=== PATIENT | female | born 1955 | race Caucasian/White ===

== ENCOUNTER 2022-01-17 11:58 | Inpatient (IN) | payer MEDICARE, OTHER ==
[~2022-01-17] VITALS: Ht 167.6 cm; Wt 101.6 kg
[2022-01-17 13:01] LABS: BASOPHILS % (AUTO) 0.2 % (0.0-5.0); EOSINOPHILS % (AUTO) 0.5 % (0.0-8.0); HEMATOCRIT 41.5 % (36-48); LYMPHOCYTES % (AUTO) 9.9 % (21.0-51.0); MEAN CORPUSCULAR HEMOGLOBIN 32.8 pg (27.0-33.0); MEAN CORPUSCULAR HGB CONC 33.5 g/dL (32.0-36.0); MEAN CORPUSCULAR VOLUME 97.9 fL (79-99); MONOCYTES % (AUTO) 9.3 % (3.0-13.0); NEUTROPHILS % (AUTO) 79.8 % (40.0-77.0); PLATELET COUNT (AUTO) 71 K/uL (130-400); RED BLOOD CELL COUNT(AUTO) 4.24 MIL/uL (4.00-5.50); RED CELL DISTRIBUTION WIDTH 15.9 % (11.0-15.5); WHITE BLOOD COUNT (AUTO) 6.5 K/uL (4.8-10.8)
[2022-01-17 13:18] LABS: CREATININE 1.5 mg/dL (0.5-1.5)
[2022-01-17 13:22] LABS: ALBUMIN 2.3 g/dL (3.5-5.0); BILIRUBIN,TOTAL 3.1 mg/dL (0.2-1.0); TOTAL PROTEIN, SERUM 8.8 g/dL (6.0-8.3)
[2022-01-17 14:31] LABS: APPEARANCE,URINE Cloudy (CLEAR); BILIRUBIN,URINE Moderate (NEGATIVE); COLOR,URINE Dark Yellow (YELLOW); GLUCOSE, URINE (UA) Negative (NEGATIVE); KETONES,URINE Trace mg/dL (NEGATIVE); LEUKOCYTE ESTERASE ,URINE Moderate (NEGATIVE); NITRATE,URINE Positive (NEGATIVE); OCCULT BLOOD,URINE Moderate (NEGATIVE); PH,URINE 5.5 (5.0-8.0); PROTEIN,URINE POS 1+ mg/dL (NEGATIVE)
[2022-01-17 15:00] LABS: BACTERIA,URINE Moderate /HPF (None Seen); MUCUS,URINE Few LPF (None Seen); SQUAMOUS EPITHELIAL CELL,UR Few /HPF (0-2)
[2022-01-17] MEDS ORDERED: ONDANSETRON 4MG INJ IVP ONE (15:00)
[2022-01-17] MEDS ORDERED: 0.9% NACL 500ML IV.SOLN 500 ML IV ONE (15:00)
[2022-01-17] MEDS ORDERED: CEFTRIAXONE 1G VIAL IV ONE (15:00)
[2022-01-17] MEDS ORDERED: IOHEXOL 350 MG/ML 100ML INFUS..BTL IV ONE (15:03)
[2022-01-17] MEDS ORDERED: 0.9%NACL 50ML 50 ML IV ONE (15:49)
[2022-01-17] MEDS ORDERED: ONDANSETRON 4MG INJ IV PRN (17:00)
[2022-01-17] MEDS ORDERED: ACETAMINOPHEN 325 MG TAB PO PRN ×2 (17:00)
[2022-01-17] MEDS ORDERED: MORPHINE 2 MG SYG IV PRN (17:00)
[2022-01-17 17:36] LABS: ALBUMIN 2.4 g/dL (3.5-5.0); TOTAL PROTEIN, SERUM 8.9 g/dL (6.0-8.3)
[2022-01-17 17:44] LABS: B-TYPE NATRIURETIC PEPTIDE 32 pg/mL (0-100)
[2022-01-17] MEDS: FUROSEMIDE 40MG VIAL IV SCH (18:00)
[2022-01-17] MEDS ORDERED: FUROSEMIDE 40MG VIAL ONE (18:01)
[2022-01-17 18:26] LABS: ERYTHROCYTE SEDIMENTATION RATE 30 MM/HR (0-30)
[2022-01-17] MEDS ORDERED: LACTULOSE 20 GM/30 ML UDCUP PO PRN (18:30)
[2022-01-17] MEDS: LACTULOSE 20 GM/30 ML UDCUP PO SCH (21:05)
[2022-01-17] MEDS: ZOSYN 3.375GM+NS 50ML 50 ML IV SCH (21:05)
[2022-01-17] MEDS: SPIRONOLACTONE 25 MG TAB PO SCH (21:05)
[2022-01-17 21:41] VITALS: BP 129/79
[2022-01-18 03:37] LABS: BASOPHILS % (AUTO) 0.4 % (0.0-5.0); EOSINOPHILS % (AUTO) 1.1 % (0.0-8.0); HEMATOCRIT 41.5 % (36-48); LYMPHOCYTES % (AUTO) 9.4 % (21.0-51.0); MEAN CORPUSCULAR VOLUME 97.2 fL (79-99); MONOCYTES % (AUTO) 9.6 % (3.0-13.0); NEUTROPHILS % (AUTO) 79.1 % (40.0-77.0); PLATELET COUNT (AUTO) 92 K/uL (130-400); RED BLOOD CELL COUNT(AUTO) 4.27 MIL/uL (4.00-5.50); WHITE BLOOD COUNT (AUTO) 8.2 K/uL (4.8-10.8)
[2022-01-18 03:45] LABS: ALBUMIN 2.2 g/dL (3.5-5.0); BILIRUBIN,TOTAL 2.6 mg/dL (0.2-1.0); CREATININE 1.5 mg/dL (0.5-1.5); POTASSIUM 4.1 mmol/L (3.5-5.1); TOTAL PROTEIN, SERUM 8.2 g/dL (6.0-8.3)
[2022-01-18] MEDS: ZOSYN 3.375GM+NS 50ML 50 ML IV SCH ×3 (04:24→20:29)
[2022-01-18 05:17] VITALS: BP 90/56
[2022-01-18] MEDS: FUROSEMIDE 40MG VIAL IV SCH ×2 (06:13→17:08)
[2022-01-18 08:00] VITALS: BP 96/59
[2022-01-18] MEDS: SPIRONOLACTONE 25 MG TAB PO SCH ×2 (08:32→20:29)
[2022-01-18] MEDS: LACTULOSE 20 GM/30 ML UDCUP PO SCH ×2 (08:32→20:29)
[2022-01-18] MEDS: PANTOPRAZOLE 40 MG/VIAL IVP SCH ×2 (08:34→20:29)
[2022-01-18] MEDS ORDERED: FAMOTIDINE 20MG TAB PO SCH (09:00)
[2022-01-18 11:00] VITALS: BP 100/64
[2022-01-18 16:00] VITALS: BP 95/61
[2022-01-18 19:52] VITALS: BP 130/79
[2022-01-18 23:56] VITALS: BP 95/68
[2022-01-19] VITALS (15 sets, daily range): BP systolic 94–142; BP diastolic 40–70
[2022-01-19 05:08] LABS: BASOPHILS % (AUTO) 0.2 % (0.0-5.0); EOSINOPHILS % (AUTO) 0.3 % (0.0-8.0); HEMATOCRIT 40.4 % (36-48); LYMPHOCYTES % (AUTO) 6.8 % (21.0-51.0); MEAN CORPUSCULAR HEMOGLOBIN 32.9 pg (27.0-33.0); MEAN CORPUSCULAR HGB CONC 33.9 g/dL (32.0-36.0); MEAN CORPUSCULAR VOLUME 97.1 fL (79-99); MONOCYTES % (AUTO) 6.9 % (3.0-13.0); NEUTROPHILS % (AUTO) 85.5 % (40.0-77.0); PLATELET COUNT (AUTO) 83 K/uL (130-400); RED BLOOD CELL COUNT(AUTO) 4.16 MIL/uL (4.00-5.50); WHITE BLOOD COUNT (AUTO) 6.1 K/uL (4.8-10.8)
[2022-01-19 05:12] LABS: CREATININE 1.8 mg/dL (0.5-1.5); POTASSIUM 3.7 mmol/L (3.5-5.1)
[2022-01-19 05:13] LABS: INR 1.47 (0.85-1.15); PROTHROMBIN TIME 15.5 SEC (9.6-11.6)
[2022-01-19 05:14] LABS: PARTIAL THROMBOPLASTIN TIME 33.9 SEC (26.3-35.5)
[2022-01-19] MEDS: ZOSYN 3.375GM+NS 50ML 50 ML IV SCH ×3 (05:26→21:47)
[2022-01-19] MEDS: FUROSEMIDE 40MG VIAL IV SCH ×2 (05:28→17:58)
[2022-01-19] MEDS: LACTULOSE 20 GM/30 ML UDCUP PO SCH ×3 (09:00→21:57)
[2022-01-19] MEDS: PANTOPRAZOLE 40 MG/VIAL IVP SCH ×2 (09:00→21:47)
[2022-01-19] MEDS: SPIRONOLACTONE 25 MG TAB PO SCH ×2 (09:00→21:47)
[2022-01-19] MEDS ORDERED: ALBUMIN (HUMAN) 25% 200 ML IV SCH (13:00)
[2022-01-19 15:08] LABS: APPEARANCE BODY FLUID CLEAR (CLEAR); SPECIMENTYPE,BODY FLUID ASCITES
[2022-01-19 15:09] LABS: BODY FLUID RBC 32 /cu. mm.; BODY FLUID WBC 16 /cu. mm.; COLOR,BODY FLUID YELLOW (LT YELLOW); TOTAL VOLUME,BODY FLUID 13500 mL
[2022-01-19 16:57] LABS: BF EOSINOPHIL 1 %; BF LYMPHOCYTE 25 %; BF MESOTHELIAL 14 %; BF MONOCYTE 6 %
[2022-01-19 23:10] LABS: ALBUMIN,BODY FLUID 0.5 g/dL
[2022-01-20 04:19] VITALS: BP 106/53
[2022-01-20] MEDS: FUROSEMIDE 40MG VIAL IV SCH (05:14)
[2022-01-20] MEDS: ZOSYN 3.375GM+NS 50ML 50 ML IV SCH ×3 (05:14→21:06)
[2022-01-20] MEDS: LACTULOSE 20 GM/30 ML UDCUP PO SCH ×5 (05:14→23:17)
[2022-01-20 08:00] VITALS: BP 93/50
[2022-01-20] MEDS: PANTOPRAZOLE 40 MG/VIAL IVP SCH ×2 (08:38→21:06)
[2022-01-20] MEDS: SPIRONOLACTONE 25 MG TAB PO SCH (08:38)
[2022-01-20] MEDS ORDERED: ALBUMIN (HUMAN) 25% 200 ML IV SCH (10:00)
[2022-01-20 10:02] LABS: HEMATOCRIT 33.7 % (36-48); MEAN CORPUSCULAR HGB CONC 34.4 g/dL (32.0-36.0); PLATELET COUNT (AUTO) 64 K/uL (130-400); RED BLOOD CELL COUNT(AUTO) 3.51 MIL/uL (4.00-5.50); RED CELL DISTRIBUTION WIDTH 15.9 % (11.0-15.5); WHITE BLOOD COUNT (AUTO) 4.6 K/uL (4.8-10.8)
[2022-01-20 10:17] LABS: ALBUMIN 2.3 g/dL (3.5-5.0); BILIRUBIN,TOTAL 2.4 mg/dL (0.2-1.0); CREATININE 2.1 mg/dL (0.5-1.5); TOTAL PROTEIN, SERUM 6.4 g/dL (6.0-8.3)
[2022-01-20 10:30] LABS: POTASSIUM 2.6 mmol/L (3.5-5.1)
[2022-01-20 11:12] VITALS: BP 98/48
[2022-01-20] MEDS ORDERED: LIDOCAINE HCL-MPF 1% 2ML VIAL IV PRN (11:30)
[2022-01-20] MEDS ORDERED: POTASSIUM CHLORIDE 10% ELIXIR 20 MEQ/15 ML UDCUP PO PRN (11:30)
[2022-01-20 13:56] LABS: HEPATITIS B SURFACE ANTIGEN Non-Reactive (Negative)
[2022-01-20 13:57] LABS: HEPATITIS A IGM ANTIBODY Non-Reactive (Negative); HEPATITIS B CORE IGM ANTIBODY Non-Reactive (Negative); HEPATITIS C ANTIBODY Reactive (NEGATIVE)
[2022-01-20] MEDS: POTASSIUM CHLORIDE 20MEQ/100ML 100 ML IV PRN ×2 (14:34→21:19)
[2022-01-20] MEDS: MIDODRINE HCL 5 MG TABLET PO SCH ×2 (14:35→21:06)
[2022-01-20 16:00] VITALS: BP 96/49
[2022-01-20] MEDS ORDERED: LACTULOSE 20 GM/30 ML UDCUP PO PRN (18:00)
[2022-01-20 19:52] VITALS: BP 109/50
[2022-01-20] MEDS ORDERED: RIFAXIMIN 550 MG TABLET PO SCH (21:00)
[2022-01-20] MEDS ORDERED: LACTULOSE 20 GM/30 ML UDCUP PO SCH (21:00)
[2022-01-21] MEDS ORDERED: 0.9%NACL 1000ML 1,000 ML IV SCH (00:30)
[2022-01-21 00:49] VITALS: BP 98/51
[2022-01-21] MEDS: CEFTRIAXONE 2GM VIAL IVP SCH (00:55)
[2022-01-21 03:32] VITALS: BP 96/49
[2022-01-21 04:42] LABS: HEMATOCRIT 32.7 % (36-48); MEAN CORPUSCULAR HEMOGLOBIN 33.5 pg (27.0-33.0); MEAN CORPUSCULAR HGB CONC 34.3 g/dL (32.0-36.0); MEAN CORPUSCULAR VOLUME 97.9 fL (79-99); RED BLOOD CELL COUNT(AUTO) 3.34 MIL/uL (4.00-5.50); RED CELL DISTRIBUTION WIDTH 15.9 % (11.0-15.5); WHITE BLOOD COUNT (AUTO) 4.2 K/uL (4.8-10.8)
[2022-01-21 04:59] LABS: ALBUMIN 2.5 g/dL (3.5-5.0); CREATININE 2.1 mg/dL (0.5-1.5); MAGNESIUM 1.8 mg/dL (1.80-2.40); PHOSPHORUS 2.7 mg/dL (2.5-4.9); TOTAL PROTEIN, SERUM 6.1 g/dL (6.0-8.3)
[2022-01-21 05:01] LABS: POTASSIUM 2.6 mmol/L (3.5-5.1)
[2022-01-21] MEDS: POTASSIUM CHLORIDE 20MEQ/100ML 100 ML IV PRN (05:12)
[2022-01-21 08:04] VITALS: BP 94/54
[2022-01-21] MEDS: MIDODRINE HCL 5 MG TABLET PO SCH ×3 (09:52→21:53)
[2022-01-21] MEDS: KCL 20 MEQ ERTAB PO PRN ×4 (09:52→14:32)
[2022-01-21] MEDS: PANTOPRAZOLE 40 MG/VIAL IVP SCH ×2 (09:52→21:53)
[2022-01-21 11:14] VITALS: BP 91/50
[2022-01-21 16:13] VITALS: BP 96/57
[2022-01-21 20:00] VITALS: BP 102/57
[2022-01-21] MEDS: RIFAXIMIN 550 MG TABLET PO SCH (21:53)
[2022-01-21] MEDS: LACTULOSE 20 GM/30 ML UDCUP PO SCH (21:53)
[2022-01-22] VITALS: BP 100/59
[2022-01-22] MEDS: CEFTRIAXONE 2GM VIAL IVP SCH (01:59)
[2022-01-22 04:00] VITALS: BP 101/56
[2022-01-22 08:00] VITALS: BP 109/68
[2022-01-22] MEDS: RIFAXIMIN 550 MG TABLET PO SCH ×2 (09:22→22:18)
[2022-01-22] MEDS: LACTULOSE 20 GM/30 ML UDCUP PO SCH ×3 (09:22→22:18)
[2022-01-22] MEDS: MIDODRINE HCL 5 MG TABLET PO SCH ×3 (09:22→22:18)
[2022-01-22] MEDS: PANTOPRAZOLE 40 MG/VIAL IVP SCH ×2 (09:22→22:18)
[2022-01-22] MEDS: KCL 20 MEQ ERTAB PO PRN ×2 (09:54→09:55)
[2022-01-22 11:28] VITALS: BP 97/60
[2022-01-22 13:42] LABS: BASOPHILS % (AUTO) 0.6 % (0.0-5.0); EOSINOPHILS % (AUTO) 1.8 % (0.0-8.0); HEMATOCRIT 40.2 % (36-48); LYMPHOCYTES % (AUTO) 10.4 % (21.0-51.0); MEAN CORPUSCULAR HEMOGLOBIN 33.7 pg (27.0-33.0); MEAN CORPUSCULAR HGB CONC 34.6 g/dL (32.0-36.0); MEAN CORPUSCULAR VOLUME 97.6 fL (79-99); MONOCYTES % (AUTO) 10.2 % (3.0-13.0); NEUTROPHILS % (AUTO) 76.6 % (40.0-77.0); PLATELET COUNT (AUTO) 60 K/uL (130-400); RED BLOOD CELL COUNT(AUTO) 4.12 MIL/uL (4.00-5.50); RED CELL DISTRIBUTION WIDTH 16.2 % (11.0-15.5)
[2022-01-22 13:54] LABS: CREATININE 2.1 mg/dL (0.5-1.5); POTASSIUM 3.5 mmol/L (3.5-5.1)
[2022-01-22 13:57] LABS: INR 1.84 (0.85-1.15)
[2022-01-22 13:58] LABS: ALBUMIN 2.3 g/dL (3.5-5.0); BILIRUBIN,TOTAL 2.1 mg/dL (0.2-1.0); TOTAL PROTEIN, SERUM 6.4 g/dL (6.0-8.3)
[2022-01-22 16:00] VITALS: BP 96/61
[2022-01-22] MEDS: OCTREOTIDE ACETATE 100 MCG/ML AMP SQ SCH ×2 (16:21→22:19)
[2022-01-22 19:00] VITALS: BP 102/60
[2022-01-23] VITALS: BP 104/67
[2022-01-23] MEDS: CEFTRIAXONE 2GM VIAL IVP SCH (00:57)
[2022-01-23 04:00] VITALS: BP 109/72
[2022-01-23 08:00] VITALS: BP 105/67
[2022-01-23] MEDS ORDERED: PHYTONADIONE 10 MG in 0.9%NACL 50ML 50 ML IVPB SCH (08:30)
[2022-01-23] MEDS ORDERED: PHARMACY COMMUNICATION MISC SCH (08:30)
[2022-01-23] MEDS ORDERED: ALBUMIN (HUMAN) 25% 50 ML IV SCH (08:30)
[2022-01-23] MEDS: MIDODRINE HCL 5 MG TABLET PO SCH ×3 (09:52→21:47)
[2022-01-23] MEDS: LACTULOSE 20 GM/30 ML UDCUP PO SCH ×3 (09:52→21:47)
[2022-01-23] MEDS: RIFAXIMIN 550 MG TABLET PO SCH ×2 (09:52→21:47)
[2022-01-23] MEDS: OCTREOTIDE ACETATE 100 MCG/ML AMP SQ SCH ×3 (09:53→21:47)
[2022-01-23] MEDS: PANTOPRAZOLE 40 MG/VIAL IVP SCH ×2 (10:05→21:47)
[2022-01-23 10:34] LABS: BASOPHILS % (AUTO) 0.7 % (0.0-5.0); EOSINOPHILS % (AUTO) 2.2 % (0.0-8.0); HEMATOCRIT 39.1 % (36-48); LYMPHOCYTES % (AUTO) 9.7 % (21.0-51.0); MEAN CORPUSCULAR HEMOGLOBIN 34.1 pg (27.0-33.0); MEAN CORPUSCULAR HGB CONC 35.3 g/dL (32.0-36.0); MEAN CORPUSCULAR VOLUME 96.5 fL (79-99); NEUTROPHILS % (AUTO) 75.7 % (40.0-77.0); PLATELET COUNT (AUTO) 57 K/uL (130-400); RED BLOOD CELL COUNT(AUTO) 4.05 MIL/uL (4.00-5.50); RED CELL DISTRIBUTION WIDTH 16.5 % (11.0-15.5); WHITE BLOOD COUNT (AUTO) 5.9 K/uL (4.8-10.8)
[2022-01-23 10:46] LABS: CREATININE 1.9 mg/dL (0.5-1.5); POTASSIUM 3.7 mmol/L (3.5-5.1)
[2022-01-23 11:01] LABS: ALBUMIN 2.2 g/dL (3.5-5.0); BILIRUBIN,TOTAL 2.2 mg/dL (0.2-1.0); THYROID STIMULATING HORMONE 2.36 uIU/mL (0.36-3.74); TOTAL PROTEIN, SERUM 6.4 g/dL (6.0-8.3)
[2022-01-23 11:34] VITALS: BP 102/73
[2022-01-23 14:13] LABS: ALPHA-1-ANTITRYPSIN 118 mg/dL (101-187)
[2022-01-23 16:00] VITALS: BP 112/61
[2022-01-23 20:00] VITALS: BP 102/57
[2022-01-24] VITALS: BP 98/62
[2022-01-24] MEDS: CEFTRIAXONE 2GM VIAL IVP SCH (00:54)
[2022-01-24 04:00] VITALS: BP 116/65
[2022-01-24 05:39] LABS: BASOPHILS % (AUTO) 0.7 % (0.0-5.0); EOSINOPHILS % (AUTO) 3.5 % (0.0-8.0); HEMATOCRIT 39.7 % (36-48); LYMPHOCYTES % (AUTO) 13.7 % (21.0-51.0); MEAN CORPUSCULAR HEMOGLOBIN 33.4 pg (27.0-33.0); MEAN CORPUSCULAR HGB CONC 33.8 g/dL (32.0-36.0); MONOCYTES % (AUTO) 11.3 % (3.0-13.0); NEUTROPHILS % (AUTO) 70.1 % (40.0-77.0); PLATELET COUNT (AUTO) 58 K/uL (130-400); RED BLOOD CELL COUNT(AUTO) 4.01 MIL/uL (4.00-5.50); RED CELL DISTRIBUTION WIDTH 16.7 % (11.0-15.5); WHITE BLOOD COUNT (AUTO) 4.5 K/uL (4.8-10.8)
[2022-01-24 05:46] LABS: INR 1.74 (0.85-1.15)
[2022-01-24 05:58] LABS: CREATININE 1.9 mg/dL (0.5-1.5); MAGNESIUM 2.1 mg/dL (1.80-2.40); PHOSPHORUS 1.9 mg/dL (2.5-4.9); POTASSIUM 3.7 mmol/L (3.5-5.1)
[2022-01-24 08:00] VITALS: BP 100/62
[2022-01-24] MEDS: PANTOPRAZOLE 40 MG/VIAL IVP SCH ×2 (10:58→21:29)
[2022-01-24] MEDS: LACTULOSE 20 GM/30 ML UDCUP PO SCH ×3 (10:59→21:30)
[2022-01-24] MEDS: RIFAXIMIN 550 MG TABLET PO SCH ×2 (10:59→21:29)
[2022-01-24] MEDS: OCTREOTIDE ACETATE 100 MCG/ML AMP SQ SCH (10:59)
[2022-01-24] MEDS: MIDODRINE HCL 5 MG TABLET PO SCH ×3 (10:59→21:30)
[2022-01-24 12:00] VITALS: BP 132/72
[2022-01-24] MEDS ORDERED: OCTREOTIDE ACETATE 1,250 MCG in 0.9% NACL 250ML 250 ML IV SCH (14:00)
[2022-01-24] MEDS ORDERED: COMPOUND IV REFRIGERATED 1 EACH IVSOLN MISC PRN (14:30)
[2022-01-24 16:00] VITALS: BP 112/68
[2022-01-24 20:00] VITALS: BP 115/67
[2022-01-24] MEDS: BALSAM PERU/CASTOR OIL 60 GM TUBE TP SCH (21:30)
[2022-01-24 21:50] LABS: HEMATOCRIT 38.7 % (36-48)
[2022-01-25] VITALS: BP 117/65
[2022-01-25] MEDS: CEFTRIAXONE 2GM VIAL IVP SCH (00:58)
[2022-01-25 04:00] VITALS: BP 114/65
[2022-01-25 05:15] LABS: HEMATOCRIT 37.9 % (36-48)
[2022-01-25 08:00] VITALS: BP 119/69
[2022-01-25] MEDS: PANTOPRAZOLE 40 MG/VIAL IVP SCH ×2 (09:57→20:40)
[2022-01-25] MEDS: MIDODRINE HCL 5 MG TABLET PO SCH ×3 (10:03→20:41)
[2022-01-25] MEDS: LACTULOSE 20 GM/30 ML UDCUP PO SCH ×3 (10:03→21:00)
[2022-01-25] MEDS: BALSAM PERU/CASTOR OIL 60 GM TUBE TP SCH ×2 (10:04→20:41)
[2022-01-25] MEDS: RIFAXIMIN 550 MG TABLET PO SCH ×2 (10:04→20:41)
[2022-01-25 12:00] VITALS: BP 117/74
[2022-01-25 13:51] LABS: HEMATOCRIT 42.5 % (36-48)
[2022-01-25 16:00] VITALS: BP 107/60
[2022-01-25] MEDS ORDERED: PEG 3350/NA SULF,BICARB,CL/KCL 4000 ML SOLN PO ONE (17:00)
[2022-01-25 20:00] VITALS: BP 121/73
[2022-01-26] VITALS (7 sets, daily range): BP systolic 103–134; BP diastolic 65–91
[2022-01-26] MEDS: CEFTRIAXONE 2GM VIAL IVP SCH (00:32)
[2022-01-26 04:55] LABS: HEMATOCRIT 37.6 % (36-48)
[2022-01-26 05:10] LABS: ALBUMIN 2.5 g/dL (3.5-5.0); BILIRUBIN,TOTAL 2.9 mg/dL (0.2-1.0); CREATININE 1.5 mg/dL (0.5-1.5); TOTAL PROTEIN, SERUM 6.6 g/dL (6.0-8.3)
[2022-01-26 05:33] LABS: POTASSIUM 2.9 mmol/L (3.5-5.1)
[2022-01-26] MEDS: KCL 20 MEQ ERTAB PO PRN ×4 (05:41→17:49)
[2022-01-26] MEDS: PANTOPRAZOLE 40 MG/VIAL IVP SCH ×2 (08:33→21:06)
[2022-01-26] MEDS: MIDODRINE HCL 5 MG TABLET PO SCH ×3 (08:33→21:07)
[2022-01-26] MEDS: RIFAXIMIN 550 MG TABLET PO SCH ×2 (08:34→21:07)
[2022-01-26] MEDS: LACTULOSE 20 GM/30 ML UDCUP PO SCH ×3 (08:34→21:06)
[2022-01-26] MEDS: BALSAM PERU/CASTOR OIL 60 GM TUBE TP SCH ×2 (08:41→21:08)
[2022-01-26 08:58] LABS: HEPATITIS C PCR QUANTITATIVE SEE SEPERATE REPORT; HEPATITIS C VIRUS ANTIBODY SEE SEPERATE REPORT (Negative)
[2022-01-26 14:24] LABS: CHLORIDE,URINE RANDOM 26 mmol/L (110-250); SODIUM,URINE RANDOM < 14 mmol/l (40-220)
[2022-01-26 14:32] LABS: HEMATOCRIT 40.5 % (36-48)
[2022-01-26] MEDS ORDERED: RIFA550T PO (18:35)
[2022-01-26] MEDS ORDERED: TORS20TA4 PO (18:35)
[2022-01-26] MEDS ORDERED: Midodrine Hcl PO (18:35)
[2022-01-26] MEDS ORDERED: LACT PO (18:35)
[2022-01-26] MEDS ORDERED: SPIR50TA PO (18:35)
[2022-01-26] MEDS ORDERED: SPIRONOLACTONE 25 MG TAB PO SCH (19:30)
[2022-01-26] MEDS ORDERED: TORSEMIDE 20 MG TAB PO SCH (19:30)
[2022-01-27] MEDS: CEFTRIAXONE 2GM VIAL IVP SCH (00:39)
[2022-01-27 05:13] VITALS: BP 133/72
[2022-01-27 07:15] VITALS: BP 94/60
[2022-01-27] MEDS: RIFAXIMIN 550 MG TABLET PO SCH (08:17)
[2022-01-27] MEDS: MIDODRINE HCL 5 MG TABLET PO SCH (08:17)
[2022-01-27] MEDS: LACTULOSE 20 GM/30 ML UDCUP PO SCH (08:18)
[2022-01-27] MEDS: PANTOPRAZOLE 40 MG/VIAL IVP SCH (08:18)
[2022-01-27] MEDS: BALSAM PERU/CASTOR OIL 60 GM TUBE TP SCH (08:20)
[2022-01-27] MEDS ORDERED: TORSEMIDE 20 MG TAB PO SCH (09:00)
[2022-01-27] MEDS ORDERED: SPIRONOLACTONE 25 MG TAB PO SCH (09:00)
[2022-01-27 09:27] LABS: BASOPHILS % (AUTO) 0.8 % (0.0-5.0); EOSINOPHILS % (AUTO) 1.4 % (0.0-8.0); HEMATOCRIT 41.2 % (36-48); LYMPHOCYTES % (AUTO) 10.7 % (21.0-51.0); MEAN CORPUSCULAR HEMOGLOBIN 33.7 pg (27.0-33.0); MEAN CORPUSCULAR HGB CONC 34.2 g/dL (32.0-36.0); MEAN CORPUSCULAR VOLUME 98.3 fL (79-99); MONOCYTES % (AUTO) 10.3 % (3.0-13.0); NEUTROPHILS % (AUTO) 76.2 % (40.0-77.0); PLATELET COUNT (AUTO) 75 K/uL (130-400); RED BLOOD CELL COUNT(AUTO) 4.19 MIL/uL (4.00-5.50); RED CELL DISTRIBUTION WIDTH 17.2 % (11.0-15.5); WHITE BLOOD COUNT (AUTO) 6.3 K/uL (4.8-10.8)
[2022-01-27 09:37] LABS: CARBON DIOXIDE 28 mmol/L (21-32); CHLORIDE 98 mmol/L (101-111); CREATININE 1.8 mg/dL (0.5-1.5); GLOMERULAR FILTR. RATE CALC 30 mL/min (>60); GLUCOSE,RANDOM 181 mg/dL (70-105); POTASSIUM 3.6 mmol/L (3.5-5.1); SODIUM SERUM 133 mmol/L (136-145); UREA NITROGEN, BLOOD 15 mg/dL (7-18)
[2022-01-27 09:39] LABS: ALANINE AMINOTRANSFERASE 25 U/L (12-78); ALBUMIN 2.6 g/dL (3.5-5.0); ASPARTATE AMINOTRANSFERASE 56 U/L (10-37); BILIRUBIN,TOTAL 3.9 mg/dL (0.2-1.0); TOTAL PROTEIN, SERUM 7.1 g/dL (6.0-8.3)
[2022-01-27 09:40] LABS: AMMONIA < 10 umol/L (11-32)
== END 2022-01-27 11:32 | disposition home or self-care (01) | DRG 432 ==
LOC: EDH 11:58 → EDHIP 16:54 → 3CH 20:13
PROVIDERS: ADMIT Internal Medicine; ATTEND Internal Medicine
PROC: 0W9G3ZZ Drainage of Peritoneal Cavity, Percutaneous Approach (ICD-10-PCS; principal; 2022-01-19)
DX: K74.60 Unspecified cirrhosis of liver (principal); K76.7 Hepatorenal syndrome; R18.8 Other ascites; N39.0 Urinary tract infection, site not specified; N17.9 Acute kidney failure, unspecified; E87.1 Hypo-osmolality and hyponatremia; E44.0 Moderate protein-calorie malnutrition; D61.818 Other pancytopenia; K72.90 Hepatic failure, unspecified without coma; E87.70 Fluid overload, unspecified; F17.210 Nicotine dependence, cigarettes, uncomplicated; E86.0 Dehydration; B19.20 Unspecified viral hepatitis C without hepatic coma; K57.30 Diverticulosis of large intestine without perforation or abscess without bleeding; K80.20 Calculus of gallbladder without cholecystitis without obstruction; Z53.20 Procedure and treatment not carried out because of patient's decision for unspecified reasons; Z68.36 Body mass index [BMI] 36.0-36.9, adult; D63.8 Anemia in other chronic diseases classified elsewhere
CPT/HCPCS: 36415; 49083; 71045; 74177; 80048; 80053; 80074; 80076; 81001; 82042; 82103; 82104; 82140; 82270; 82390; 82436; 82728; 83036; 83516; 83540; 83550; 83690; 83735; 83880; 83930; 83935; 84100; 84132; 84157; 84300; 84443; 84484; 85014; 85018; 85025; 85027; 85610; 85651; 85730; 86038; 86215; 86235; 86255; 86334; 86701; 86804; 87071; 87088; 87205; 87390; 87522; 87902; 89051; 93005; 97039; C1729; C9113; G0378; J0696; J1940; J2354; J2405; J2543; J3430; J3480; J3490; J7040; J7050; P9046; P9047; Q9967